=== PATIENT | female | born 1980 ===

== ENCOUNTER 2017-01-04 16:04 | Emergency (ER) | payer OTHER ==
[2017-01-04 16:22] VITALS: BP 101/63; PULSE 61; RESP 16; TEMP 96; O2SAT 99
--- NOTE | 2017-01-04 16:36 | ED PDOC ---
HPI: Female Pain Time Seen by Provider: 01/04/17 16:25 Chief Complaint (Nursing): Female Genitourinary History Per: Patient Onset/Duration Of Symptoms: Days (7) Current Symptoms Are (Timing): Still Present Severity: Moderate Pain Scale Rating Of: 3 Quality Of Discomfort: Sharp Associated Symptoms: denies: Fever, Nausea, Vomiting, Diarrhea, Urinary Symptoms Alleviating Factors: None Additional Complaint(s): Pelvic pain x 1 week. Denies back pain. No fever. No vaginal discharge. no dysuria or frequency. Abnormal Vaginal Bleeding: No Past Medical History Vital Signs: Last Vital Signs Temp 96.0 F L 01/04/17 16:20 Pulse 61 01/04/17 16:20 Resp 16 01/04/17 16:20 BP 101/63 01/04/17 16:20 Pulse Ox 99 01/04/17 16:20 - Medical History PMH: No Chronic Diseases - Family History Family History: States: Unknown Family Hx - Home Medications Home Medications: Ambulatory Orders Medication Instructions Recorded No Known Home Med 01/04/17 - Allergies Allergies/Adverse Reactions: Allergies Allergy/AdvReac Type Severity Reaction Status Date / Time No Known Allergies Allergy Verified 01/04/17 16:20 Review of Systems Constitutional: Negative for: Fever Gastrointestinal: Positive for: Abdominal Pain Genitourinary Female: Positive for: Pelvic Pain. Negative for: Dysuria, Frequency, Vaginal Discharge, Vaginal Bleeding Musculoskeletal: Negative for: Back Pain Physical Exam - Physical Exam Appears: Positive for: Non-toxic, No Acute Distress Skin: Positive for: Normal Color, Warm, DRY Gastrointestinal/Abdominal: Positive for: Bowel Sounds, Soft, Tenderness (RLQ) Pelvic Exam: Positive for: External Exam Normal, No Masses, Blood (scant blood in vault), Tender W/Cervical Motion, Tender Adnexa (right side). Negative for: Discharge, Tender Uterus - Laboratory Results Result Diagrams: 01/04/17 16:40 01/04/17 16:48 - ECG O2 Sat by Pulse Oximetry: 99 Disposition - Clinical Impression Clinical Impression: Female genitourinary symptoms - Patient ED Disposition Is Patient to be Admitted: Transfer of Care - Disposition Disposition: Transfer of Care Disposition Time: 19:07 Condition: FAIR Forms: [employer] (Faroese) Patient Signed Over To: Jason Anderson
[2017-01-04 16:55] LABS: BASO % 0.7 % (0.0-2.0); EOS # 0.1 K/uL (0.0-0.7); EOS % 1.3 % (0.0-4.0); HEMATOCRIT 37.7 % (34.0-47.0); LYMPH # 1.6 K/uL (1.0-4.3); LYMPH % 25.5 % (20.0-40.0); MEAN CELL VOLUME 96.8 fl (81.0-99.0); MEAN CORPUSCULAR HEMOGLOBIN 32.3 pg (27.0-31.0); MEAN CORPUSCULAR HGB CONC 33.4 g/dL (33.0-37.0); MEAN PLATELET VOLUME 7.9 fl (7.2-11.7); MONO # 0.4 K/uL (0.0-0.8); MONO % 6.3 % (0.0-10.0); NEUT # 4.2 K/uL (1.8-7.0); NEUT % 66.2 % (50.0-75.0); RED CELL DISTRIBUTION WIDTH 13.4 % (11.5-14.5); WHITE BLOOD COUNT 6.4 K/uL (4.8-10.8)
[2017-01-04 17:12] LABS: ALB/GLOB RATIO 1.5 (1.0-2.1); ALKALINE PHOSPHATASE 82 U/L (38-126); ALT/SGPT 43 U/L (9-52); AST/SGOT 32 U/L (14-36); BILIRUBIN,TOTAL 0.3 mg/dl (0.2-1.3); BLOOD UREA NITROGEN 18 mg/dl (7-17); CARBON DIOXIDE 22 mmol/L (22-30); CHLORIDE 106 mmol/L (98-107); GFR AFRICAN-AMERICAN > 60; GLUCOSE,RANDOM 96 mg/dL (65-105); POTASSIUM 3.9 MMOL/L (3.6-5.0); SODIUM 140 mmol/l (132-148); TOTAL PROTEIN 7.3 G/DL (6.3-8.2)
--- NOTE | 2017-01-04 17:45 | US ---
HISTORY: Pelvic pain. LMP 01/01/2017. COMPARISON: None available. TECHNIQUE: Transvaginal only. Real -time technique with 2D, duplex and color Doppler FINDINGS: UTERUS: Measures 3 x 4.8 x 8.6 cm. Normal in size and appearance. No fibroid or other mass lesion seen. ENDOMETRIUM: Measures 7.8 mm in diameter. Mildly heterogeneous endometrium. Punctate echogenic foci and non shadowing but likely represent small calcifications. CERVIX: Echogenic focus within the cervical canal 2 x 7 mm likely calcification/calculus RIGHT OVARY: Measures 1.6 x 2.4 x 2.5 cm. No solid mass. Normal flow. LEFT OVARY: Measures 1.7 x 2 x 2.4 cm. No solid mass. Normal flow. Multiple subcentimeter follicles. FREE FLUID: No significant free fluid noted. OTHER FINDINGS: None. IMPRESSION: No acute findings related to/accounting for the clinical presentation. Additional benign and/or incidental findings described above.
[2017-01-04] MEDS ORDERED: Iohexol 300 100 ML IJ ONE (18:17)
[2017-01-04] MEDS ORDERED: Sodium Chloride 0.9% 50 ML IV ONE (18:17)
--- NOTE | 2017-01-04 19:04 | CT ---
PROCEDURE: CT Abdomen and Pelvis with contrast HISTORY: RLQ pain COMPARISON: None. TECHNIQUE: Contrast dose: 90 cc Omnipaque 300 Radiation dose: Total exam DLP = 412.37 mGy-cm. This CT exam was performed using one or more of the following dose reduction techniques: Automated exposure control, adjustment of the mA and/or kV according to patient size, and/or use of iterative reconstruction technique. FINDINGS: LOWER THORAX: Unremarkable. LIVER: Unremarkable. No gross lesion or ductal dilatation. GALLBLADDER AND BILE DUCTS: Unremarkable. PANCREAS: Unremarkable. No gross lesion or ductal dilatation. SPLEEN: Unremarkable. ADRENALS: Unremarkable. No mass. KIDNEYS AND URETERS: Unremarkable. No hydronephrosis. No solid mass. VASCULATURE: Unremarkable. No aortic aneurysm. BOWEL: Constipation without fecal impaction or obstruction. APPENDIX: Normal appendix. PERITONEUM: Unremarkable. No free fluid. No free air. LYMPH NODES: Unremarkable. No enlarged lymph nodes. BLADDER: Unremarkable. REPRODUCTIVE: Unremarkable. BONES: No acute fracture. OTHER FINDINGS: None. IMPRESSION: No acute findings related to/accounting for the clinical presentation. Additional benign and/or incidental findings described above.
--- NOTE | 2017-01-04 19:29 | ED PDOC ---
- Laboratory Results Result Diagrams: 01/04/17 16:40 01/04/17 16:48 - ECG O2 Sat by Pulse Oximetry: 99 Medical Decision Making Medical Decision Makin:00 Patient signed over to me by Dr. Villanueva pending CT scan and reevaluation. CT Abd/Pelvis FINDINGS: LOWER THORAX: Unremarkable. LIVER: Unremarkable. No gross lesion or ductal dilatation. GALLBLADDER AND BILE DUCTS: Unremarkable. PANCREAS: Unremarkable. No gross lesion or ductal dilatation. SPLEEN: Unremarkable. ADRENALS: Unremarkable. No mass. KIDNEYS AND URETERS: Unremarkable. No hydronephrosis. No solid mass. VASCULATURE: Unremarkable. No aortic aneurysm. BOWEL: Constipation without fecal impaction or obstruction. APPENDIX: Normal appendix. PERITONEUM: Unremarkable. No free fluid. No free air. LYMPH NODES: Unremarkable. No enlarged lymph nodes. BLADDER: Unremarkable. REPRODUCTIVE: Unremarkable. BONES: No acute fracture. OTHER FINDINGS: None. IMPRESSION: No acute findings related to/accounting for the clinical presentation. Additional benign and/or incidental findings described above. 19:55 Provider explained results to patient, patient may have mild cystitis given urine dip results. Patient advised to follow up with clinic in two days, Rx for Cipro provided, and also advised to take Ibuprofen for pain. Scribe Attestation: Documented by Denice Wagner, acting as a scribe for Jason Anderson MD. Provider Scribe Attestation: All medical record entries made by the Scribe were at my direction and personally dictated by me. I have reviewed the chart and agree that the record accurately reflects my personal performance of the history, physical exam, medical decision making, and the department course for this patient. I have also personally directed, reviewed, and agree with the discharge instructions and disposition. Disposition - Clinical Impression Clinical Impression: Cystitis, Abdominal pain - POA Present On Arrival: None - Disposition Referrals: [facility] [Outside] Disposition: Routine/Home Disposition Time: 19:55 Condition: STABLE Prescriptions: Ciprofloxacin [Cipro] 500 mg PO Q12 #14 tab Instructions: Urinary Tract Infection in Women (ED) Forms: [employer] (Turkmen) Print Language: CITIZEN OF [place]
== END 2017-01-04 20:06 | disposition home or self-care (01) ==
LOC: H.ER 16:04
DX: N30.90 Cystitis, unspecified without hematuria (principal); R11.10 Vomiting, unspecified
CPT/HCPCS: 74177; 76830; 80053; 81025; 85025; 87491; 87591; 96374; 99284; J2405; Q9967

== ENCOUNTER 2017-08-15 13:12 | Emergency (ER) | payer SELFPAY ==
--- NOTE | 2017-08-15 15:45 | ED PDOC ---
HPI: Abdomen Time Seen by Provider: 08/15/17 14:32 Chief Complaint (Nursing): Abdominal Pain History Per: Patient (This 36 yo female presents to the ER with c/o upper and left upper abd pain for 1-2 weeks. Patient states that she was treated for h.pylori in [facility] about one year ago. Symptoms improved and she did not followup. She states similar discomfort now along with bloating. The discomfort is non radiating. She started taking omeprazole a few days ago and is here because she has not achieved symptom relief. ) Past Medical History Reviewed: Historical Data, Nursing Documentation, Vital Signs Vital Signs: Last Vital Signs Temp 98.1 F 08/15/17 13:50 Pulse 68 08/15/17 13:50 Resp 20 08/15/17 13:50 BP 107/50 L 08/15/17 13:50 Pulse Ox 99 08/15/17 13:50 - Medical History Other PMH: h.pylori - Surgical History Surgical History: No Surg Hx - Family History Family History: States: Unknown Family Hx - Living Arrangements Living Arrangements: Alone - Home Medications Home Medications: Ambulatory Orders Medication Instructions Recorded Ciprofloxacin [Cipro] 500 mg PO Q12 #14 tab 01/04/17 Omeprazole 20 mg PO DAILY #30 tablet. 08/15/17 Sucralfate [Carafate] 1 gm PO QID PRN #60 dose 08/15/17 - Allergies Allergies/Adverse Reactions: Allergies Allergy/AdvReac Type Severity Reaction Status Date / Time No Known Allergies Allergy Verified 01/04/17 16:20 Review of Systems ROS Statement: Except As Marked, All Systems Reviewed And Found Negative Constitutional: Negative for: Fever, Chills Gastrointestinal: Positive for: Abdominal Pain. Negative for: Nausea, Vomiting , Diarrhea, Constipation Genitourinary Female: Negative for: Dysuria, Frequency Physical Exam - Reviewed Nursing Documentation Reviewed: Yes Vital Signs Reviewed: Yes - Physical Exam Appears: Positive for: Well, Non-toxic, No Acute Distress Head Exam: Positive for: ATRAUMATIC, NORMAL INSPECTION, NORMOCEPHALIC Skin: Positive for: Normal Color, Warm, DRY Eye Exam: Positive for: Normal appearance ENT: Positive for: Normal ENT Inspection Neck: Positive for: Normal Cardiovascular/Chest: Positive for: Regular Rate, Rhythm Respiratory: Positive for: CNT, Normal Breath Sounds Gastrointestinal/Abdominal: Positive for: Normal Exam, Bowel Sounds, Soft. Negative for: Tenderness Back: Positive for: Normal Inspection Extremity: Positive for: Normal ROM Neurologic/Psych: Positive for: Alert, Oriented - ECG O2 Sat by Pulse Oximetry: 99 Medical Decision Making Medical Decision Making: Case d/w Dr. Posadas to engage help in getting patient the appropriate followup Disposition - Clinical Impression Clinical Impression: Gastritis - Patient ED Disposition Is Patient to be Admitted: No Doctor Will See Patient In The: Office Counseled Patient/Family Regarding: Diagnosis - Disposition Referrals: [facility] [Outside] [facility] [Outside] Disposition: Routine/Home Disposition Time: 04:00 Condition: STABLE Prescriptions: Omeprazole 20 mg PO DAILY #30 tablet. Sucralfate [Carafate] 1 gm PO QID PRN #60 dose PRN Reason: esophageal reflux Instructions: Gastritis Forms: [employer] (Greenlandic) Print Language: [place] CITIZEN - POA Present On Arrival: None
[2017-08-15 15:57] VITALS: BP 128/68; PULSE 66; RESP 16; TEMP 98; O2SAT 100
== END 2017-08-15 15:45 | disposition home or self-care (01) ==
LOC: H.ER 13:12
DX: K29.70 Gastritis, unspecified, without bleeding (principal)

== ENCOUNTER 2017-11-20 12:57 | Emergency (ER) | payer OTHER, SELFPAY ==
[2017-11-20 13:24] VITALS: O2SAT 100
--- NOTE | 2017-11-20 13:46 | ED PDOC ---
HPI: Abdomen Time Seen by Provider: 11/20/17 13:46 Chief Complaint (Nursing): Abdominal Pain Chief Complaint (Provider): abd pain History Per: Patient Additional Complaint(s): 37-year-old female presents to emergency Department with dysuria and vaginal discharge 1 week. Patient states that discharge is odorless and she denies vaginal bleeding or pruritus. Patient is not sure if her symptoms are related to STDs. She is and has intercourse with her spouse only but is not sure if she is at risk potentially. She denies fever or chills. Patient denies any vomiting or diarrhea but has been mildly nauseous. Patient has been taking Tylenol for pain which has helped. PMD: Tru Spann Past Medical History Reviewed: Historical Data, Nursing Documentation, Vital Signs Vital Signs: Last Vital Signs Temp 98 F 11/20/17 13:22 Pulse 59 L 11/20/17 13:22 Resp 18 11/20/17 13:22 BP 108/69 11/20/17 13:22 Pulse Ox 100 11/20/17 14:18 - Medical History PMH: No Chronic Diseases - Surgical History Other surgeries: tubal ligation - Family History Family History: States: Unknown Family Hx - Living Arrangements Living Arrangements: With Family - Social History Current smoker - smoking cessation education provided: No Alcohol: None Drugs: Denies - Home Medications Home Medications: Ambulatory Orders Medication Instructions Recorded Ciprofloxacin [Cipro] 500 mg PO Q12 #14 tab 01/04/17 Omeprazole 20 mg PO DAILY #30 tablet. 08/15/17 Sucralfate [Carafate] 1 gm PO QID PRN #60 dose 08/15/17 Fluconazole [Diflucan] 150 mg PO ONCE #1 tab 11/20/17 Metronidazole [Metrogel] 60 gm VAG HS #1 packet 11/20/17 - Allergies Allergies/Adverse Reactions: Allergies Allergy/AdvReac Type Severity Reaction Status Date / Time No Known Allergies Allergy Verified 11/20/17 13:21 Review of Systems ROS Statement: Except As Marked, All Systems Reviewed And Found Negative Constitutional: Negative for: Fever, Chills Respiratory: Negative for: Cough Gastrointestinal: Positive for: Nausea, Abdominal Pain. Negative for: Vomiting , Diarrhea Genitourinary Female: Positive for: Dysuria, Frequency, Vaginal Discharge, Pelvic Pain. Negative for: Incontinence, Hematuria, Vaginal Bleeding Physical Exam - Reviewed Nursing Documentation Reviewed: Yes Vital Signs Reviewed: Yes - Physical Exam Appears: Positive for: Well, Non-toxic, No Acute Distress Skin: Positive for: Normal Color. Negative for: Rash Eye Exam: Positive for: Normal appearance Cardiovascular/Chest: Positive for: Regular Rate, Rhythm Respiratory: Positive for: Normal Breath Sounds Gastrointestinal/Abdominal: Positive for: Soft. Negative for: Tenderness, Distended, Guarding, Rebound Pelvic Exam: Positive for: Other (Copious amount of white malodorous discharge noted from closed cervical os, no rash or lesions noted, external genitalia within normal limits) Back: Negative for: L CVA Tenderness, R CVA Tenderness Extremity: Positive for: Normal ROM Neurologic/Psych: Positive for: Alert, Oriented - Laboratory Results Urine POC: Negative Urine dip results: Negative for: Leukocyte Esterase, Blood, Nitrate, Ketones, Glucose, Bilirubin, Protein - ECG O2 Sat by Pulse Oximetry: 100 Pulse Ox Interpretation: Normal Medical Decision Making Medical Decision Makin-year-old female with dysuria, abdominal pain and vaginal discharge. Plan: Urine dip Urine test CHL/GC culture Urine culture PO motrin Genital culture Patient was offered empiric treatment for gonorrhea and chlamydia but she declined. She prefers to wait for culture results. Prescriptions for Diflucan and MetroGel provided. Patient referred to women's clinic for follow-up. Patient was informed she will receive a phone call if any culture results to come back positive. Disposition - Clinical Impression Clinical Impression: Bacterial vaginosis - Patient ED Disposition Is Patient to be Admitted: No Counseled Patient/Family Regarding: Studies Performed, Diagnosis, Need For Followup, Rx Given - Disposition [facility]] Disposition: Routine/Home Disposition Time: 15:13 Condition: STABLE Additional Instructions: Take prescription meds as directed. Follow-up with women's clinic in 2-3 days. Prescriptions: Fluconazole [Diflucan] 150 mg PO ONCE #1 tab Metronidazole [Metrogel] 60 gm VAG HS #1 packet Instructions: Bacterial Vaginosis (DC) Forms: [employer] (Paraguayan) Print Language: [place]
[2017-11-20 15:26] VITALS: BP 120/78; PULSE 58; RESP 17; TEMP 98.3
== END 2017-11-20 15:25 | disposition home or self-care (01) ==
LOC: H.ER 12:57
DX: N76.0 Acute vaginitis (principal); B96.89 Other specified bacterial agents as the cause of diseases classified elsewhere